=== PATIENT | female | born 1940 | race Caucasian/White ===

== ENCOUNTER 2024-08-31 15:36 | Emergency (ER) | payer OTHER, SELFPAY ==
--- NOTE | ~2024-08-31 | CT_ITS ---
EXAMINATION: CT abdomen pelvis w con DATE: 08/31/2024 22:37 INDICATION: LLQ ab pain, diarrhea TECHNIQUE: Computed tomography (CT) of the abdomen and pelvis was performed with 100 mL Omnipaque-350 intravenous contrast. Automated exposure control and iterative reconstruction technique were employe d. The dose-length product was 183.07 mGy-cm. COMPARISON: None. FINDINGS: Lower thorax: Unremarkable Liver: Normal. Biliary/Gallbladder: Gallbladder is absent. Moderate intra and extrahepatic bile duct dilation. The c ommon bile duct measures 14 mm at the pancreatic head. Pancreas: Moderate atrophy. Mild pancreatic duct dilation. No mass. Spleen: Subcentimeter hypodensity, likely cyst or hemangioma.. Adrenals:No mass. Kidneys: No suspicious mass, obstructing stone, or hydronephrosis. GI tract: Moderate hiatal hernia. Prior gastric surgery. Moderate distal esophageal and gastric wall edema. Mild diffuse large bowel dilation and redundancy, without wall thickening or focal transition point. The fecal content is mostly fat density. No small bowel dilation. The appendix is not confiden tly visualized. A few scattered diverticuli are noted without definite evidence of diverticulitis Mesentery/Peritoneum: No ascites, mass, or free air. Retroperitoneum: No mass. Atherosclerotic abdominal aortic and/or arterial calcifications. Pelvis: Mostly empty urinary bladder. Absent uterus. Simple appearing 2.8 cm cystic structure in the right adnexa, may represent an ovarian cyst or fluid within a loop of small bowel. Soft Tissues: Mild diffuse body wall edema. Moderate sized right inguinal hernia containing fat and l oops of unobstructed small bowel. Bones: No acute osseous finding. Severe scoliosis. IMPRESSION: Moderate esophagitis/gastritis. Biliary and pancreatic duct dilation without visualized stone or obstructing mass. Correlate with maya iary and pancreatic labs. If abnormal, consider MRCP. Mostly fat density fecal content within the colon, correlate with dietary/mediastinal intake and any history of malabsorption. Right inguinal hernia containing fat and loops of small bowel. No inflammatory changes or evidence of bowel obstruction. Possible 2.8 cm right adnexal ovarian cyst. Reviewed, dictated and finalized at location [facility] CLERK IMPRESSION: Moderate esophagitis/gastritis. Biliary and pancreatic duct dilation without visualized stone or obstructing ma ss. Correlate with biliary and pancreatic labs. If abnormal, consider MRCP. Mostly fat density fecal content within the colon, correlate with dietary/media stinal intake and any history of malabsorption. Right inguinal hernia containing fat and loops of small bowel. No inflammatory changes or evidence of bowel obstruction. Possible 2.8 cm right adnexal ovarian cyst.
[2024-08-31 16:02] VITALS: BP 170/87; PULSE 55; RESP 18; TEMP 36.6; O2SAT 100
--- NOTE | 2024-08-31 17:56 | ED_ITS ---
HPI - Nausea/Vomiting/Diarrhea General Chief complaint: Nausea/Vomiting/Diarrhea Stated complaint: Diarrhea x 3-4 days-sent by Focused HPI: This is a 84-year-old female who presents to the ED for chief complaint of 4 days of diarrhea. Reports diffuse watery secretory diarrhea multiple times per day. Denies GI bleeding symptoms. Denies abdominal pain, nausea, vomiting, fevers, chills, recent antibiotic use or hospitalization. Denies any new medications. She has tried to replace fluids, however it feels like it goes straight through her. GENERAL: Well-appearing, well-nourished, and in no acute distress. HEAD: Normocephalic, atraumatic. CHEST: Clear to auscultation. No respiratory distress. HEART: Regular rate and rhythm. ABD: Soft, nontender. no rigidity. NEURO: Alert and oriented x3. Patient screened in triage and initial orders placed. Additional care and disposition to be based upon diagnostic testing and treatment. Source: patient Mode of arrival: ambulatory Limitations: no limitations Related Data Allergies Allergy/AdvReac Type Severity Reaction Status Date / Time aspirin Allergy Mild Abdominal Verified 08/31/24 16:05 Pain Course Vital Signs Vital signs: Vital Signs Temperature 97.9 F 08/31/24 16:02 Pulse Rate 55 L 08/31/24 16:02 Respiratory Rate 18 08/31/24 16:02 Blood Pressure 170/87 H 08/31/24 16:02 Pulse Oximetry 100 08/31/24 16:02 Oxygen Delivery Room Air 08/31/24 16:02 Temperature 97.9 F 08/31/24 16:02 Pulse Rate 55 L 08/31/24 16:02 Respiratory Rate 18 08/31/24 16:02 Blood Pressure 170/87 H 08/31/24 16:02 Pulse Oximetry 100 08/31/24 16:02 Oxygen Delivery Room Air 08/31/24 16:02 Discharge Plan Discharge Patient Language: Maltese Follow-up/Referrals: PHYSICIAN NOT ON STAFF,NONSTAFF [Primary Care Provider] -
[2024-08-31 18:11] VITALS: BP 188/91; PULSE 61; RESP 18; TEMP 36.8; O2SAT 99
[2024-08-31 18:36] LABS: Basophils Percent Auto 0.4 % (0.2-1.2); Eosinophils Absolute Auto 0.1 K/mm3 (0-0.3); Eosinophils Percent Auto 1.7 % (0-4.4); Hematocrit 39.5 % (37.0-47.0); Immature Granulocyte Absolute 0.01 K/mm3 (0.00-0.031); Immature Granulocyte Percent A 0.1 % (0-0.5); Lymphocytes Absolute Auto 1.46 K/mm3 (0.9-3.2); Lymphocytes Percent Auto 20.3 % (18.3-44.2); Mean Corpuscular HGB Conc 32.9 g/dl (32-36); Mean Corpuscular Hemoglobin 31.2 pg (26-34); Mean Corpuscular Volume 94.7 fl (80-100); Monocytes Absolute Auto 0.5 K/mm3 (0.1-0.6); Monocytes Percent Auto 7.2 % (2.6-8.5); Neutrophils Absolute Auto 5.1 K/mm3 (1.3-6.7); Neutrophils Percent Auto 70.3 % (45.5-73.1); Platelet Count Result 160 k/mm3 (150-375); Red Blood Count 4.17 M/mm3 (4.2-5.4); White Blood Count 7.2 K/mm3 (4.5-10.0)
[2024-08-31 18:49] LABS: Lipase 25 U/L (23-300)
[2024-08-31 22:06] LABS: Alanine Aminotransferase 20 U/L (6-35); Albumin Level 3.6 g/dL (3.5-5.1); Alkaline Phosphatase 68 U/L (38-126); Anion Gap 5 mmol/L (4-12); Aspartate Amino Transferase 28 U/L (14-36); Bilirubin,Total 0.7 mg/dL (0.2-1.3); Blood Urea Nitrogen 28 mg/dL (7-17); Calcium 9.4 mg/dL (8.4-10.2); Carbon Dioxide 31 mmol/L (22-30); Chloride 106 mmol/L (98-107); Estimated CRCL calculation 36 ml/min; Estimated Glomerular Filt Rate > 60; Glucose 104 mg/dL (65-110); Magnesium 2.4 mg/dL (1.6-2.3); Potassium 3.3 mmol/L (3.4-5.0); Sodium 142 mmol/L (137-145)
--- NOTE | 2024-08-31 22:15 | ED_ITS ---
HPI - General Adult General Chief complaint: Nausea/Vomiting/Diarrhea Stated complaint: Diarrhea x 3-4 days-sent by Time Seen by Provider: 08/31/24 21:49 General Chief complaint: Nausea/Vomiting/Diarrhea Stated complaint: Diarrhea x 3-4 days-sent by Focused HPI: This is a 84-year-old female who presents to the ED for chief complaint of 4 days of diarrhea. Reports diffuse watery secretory diarrhea multiple times per day. Denies GI bleeding symptoms. Denies abdominal pain, nausea, vomiting, fevers, chills, recent antibiotic use or hospitalization. Denies any new medications. She has tried to replace fluids, however it feels like it goes straight through her. GENERAL: Well-appearing, well-nourished, and in no acute distress. HEAD: Normocephalic, atraumatic. CHEST: Clear to auscultation. No respiratory distress. HEART: Regular rate and rhythm. ABD: Soft, nontender. no rigidity. NEURO: Alert and oriented x3. Patient screened in triage and initial orders placed. Additional care and disposition to be based upon diagnostic testing and treatment. Source: patient Mode of arrival: ambulatory Limitations: no limitations Source: patient Mode of arrival: ambulatory Limitations: no limitations History of Present Illness HPI narrative: I agree with the above HPI. Patient states he did have constipation for a few days and did take multiple doses of MiraLax but now she is just having diarrhea. Patient initially denied any abdominal pain but did have some left lower quadrant abdominal tenderness to palpation. Patient denies any urinary symptoms. Patient is present here with her daughter. Related Data Allergies Allergy/AdvReac Type Severity Reaction Status Date / Time aspirin Allergy Mild Abdominal Verified 08/31/24 16:05 Pain Review of Systems 2 Review of Systems: All systems reviewed & are unremarkable except as noted in HPI and below Exam 2 Narrative: APPEARANCE: Well appearing, no pain, no distress, well-nourished. HEAD: normocephalic, atraumatic. EYES: PERRLA/EOMI, conjunctivae clear. NOSE: Normal no drainage EARS:TMS clear with good light reflex. THROAT: Pharynx clear, no exudate. NECK: Supple. No adenopathy, no masses. RESPIRATORY: Airway patent, respirations nonlabored. Clear to auscultation bilaterally, no rales, rhonchi, wheezing. CARDIOVASCULAR: Regular rate and rhythm without murmurs rubs or gallops. ABDOMINAL: Soft, nontender, nondistended, normal bowel sounds MUSCULOSKELETAL: Moves all extremities. Strength/ROM intact, No edema, No calf tenderness. NEURO: Alert. Cranial nerves II through XII intact. Good gait. Good coordination SKIN: Warm, dry. Normal Color Course Vital Signs Vital signs: Vital Signs Temperature 97.9 F 08/31/24 16:02 Pulse Rate 55 L 08/31/24 16:02 Respiratory Rate 18 08/31/24 16:02 Blood Pressure 170/87 H 08/31/24 16:02 Pulse Oximetry 100 08/31/24 16:02 Oxygen Delivery Room Air 08/31/24 16:02 Temperature 98.3 F 08/31/24 18:11 Pulse Rate 55 L 08/31/24 23:05 Respiratory Rate 17 08/31/24 23:05 Blood Pressure 195/93 H 08/31/24 23:05 Pulse Oximetry 100 08/31/24 23:05 Oxygen Delivery Room Air 08/31/24 16:02 Medical Decision Making [facility] Narrative Medical decision making narrative: 84-year-old female presented emergency department for evaluation for diarrhea. Patient is afebrile with no leukocytosis and hemoglobin of 13.0. Patient has no significant abnormalities on her CMP, patient's creatinine is 0.74 and patient's BUN is 28. Lipase was negative. Patient did have some left lower quadrant tenderness to palpation. CT scan was ordered to evaluate for diverticulitis versus obstruction. Patient did have an enlarged biliary duct but patient has history of cholecystectomy. Patient denies any upper abdominal pain and patient has normal AST ALT alk-phos and lipase. UA was negative for infection. Patient's blood pressure did improve. Patient family updated the results of the workup they were comfortable the plan for discharge and close follow-up. Patient was advised to follow a clear liquid diet for the next 1-3 days. Differential Diagnosis Differential Diagnosis: Colitis, diverticulitis, cystitis, viral etiology, constipation, diarrhea Vital Signs Vital Signs: Vital Signs Temperature 97.9 F 08/31/24 16:02 Pulse Rate 55 L 08/31/24 16:02 Respiratory Rate 18 08/31/24 16:02 Blood Pressure 170/87 H 08/31/24 16:02 Pulse Oximetry 100 08/31/24 16:02 Oxygen Delivery Room Air 08/31/24 16:02 Temperature 98.3 F 08/31/24 18:11 Pulse Rate 55 L 08/31/24 23:05 Respiratory Rate 17 08/31/24 23:05 Blood Pressure 195/93 H 08/31/24 23:05 Pulse Oximetry 100 08/31/24 23:05 Oxygen Delivery Room Air 08/31/24 16:02 Lab Data Lab results reviewed: Yes I reviewed the patient's lab results. 08/31/24 18:02 08/31/24 18:01 Labs: Lab Results 08/31/24 08/31/24 08/31/24 Range/Units 18:01 18:02 22:12 WBC 7.2 (4.5-10.0) K/mm3 RBC 4.17 L (4.2-5.4) M/mm3 Hgb 13.0 (12.0-15.0) g/dL Hct 39.5 (37.0-47.0) % MCV 94.7 (80-100) fl MCH 31.2 (26-34) pg MCHC 32.9 (32-36) g/dl RDW 13.0 (11.5-14.5) % Plt Count 160 (150-375) k/mm3 MPV 13.0 H (7.4-10.4) fl Immature Gran % (Auto) 0.1 (0-0.5) % Neut % (Auto) 70.3 (45.5-73.1) % Lymph % (Auto) 20.3 (18.3-44.2) % [place] % (Auto) 7.2 (2.6-8.5) % Eos % (Auto) 1.7 (0-4.4) % Baso % (Auto) 0.4 (0.2-1.2) % Lymph # (Auto) 1.46 (0.9-3.2) K/mm3 [place] # (Auto) 0.5 (0.1-0.6) K/mm3 Eos # (Auto) 0.1 (0-0.3) K/mm3 Baso # (Auto) 0.0 (0.0-0.1) K/mm3 Abs Immat Gran (auto) 0.01 (0.00-0.031) K/mm3 Absolute Neuts (auto) 5.1 (1.3-6.7) K/mm3 Absolute Nucleated RBC 0.000 (0.0-0.012) K/mm3 Nucleated RBC % 0.0 (0.0-0.2) % Sodium 142 (137-145) mmol/L Potassium 3.3 L (3.4-5.0) mmol/L Chloride 106 (98-107) mmol/L Carbon Dioxide 31 H (22-30) mmol/L Anion Gap 5 (4-12) mmol/L BUN 28 H (7-17) mg/dL Creatinine 0.74 (0.7-1.0) mg/dL Estim Creat Clear Calc 36 ml/min Estimated GFR > 60 (59 - ) Glucose 104 (65-110) mg/dL Calcium 9.4 (8.4-10.2) mg/dL Magnesium 2.4 H (1.6-2.3) mg/dL Total Bilirubin 0.7 (0.2-1.3) mg/dL AST 28 (14-36) U/L ALT 20 (6-35) U/L Alkaline Phosphatase 68 (38-126) U/L Total Protein 6.0 L (6.3-8.2) g/dL Albumin 3.6 (3.5-5.1) g/dL Lipase 25 (23-300) U/L Urine Color Dark yellow (Yellow) Urine Appearance Cloudy H (Clear) Urine pH 5.5 (5.0-9.0) Ur Specific [place] 1.026 (1.001-1.035) Urine Protein Trace (Negative) mg/dL Urine Glucose (UA) Negative (Negative) mg/dL Urine Ketones Trace H (Negative) mg/dL Ur Blood (Man) Negative (Negative) Urine Nitrate Negative (Negative) Urine Bilirubin 1+ H (Negative) Urine Urobilinogen 1.0 (<2.0) mg/dL Add Ur Microanalysis Reviewed Leukocyte Esterase Rfl Negative (Negative) OSMIN/UL Urine RBC 0-2 (0-2) /hpf Urine WBC 0-5 (0-3) /hpf Ur Squamous Epith Cells None seen (Few) /hpf Urine Bacteria None seen /hpf Urine Casts 0-2 Imaging Data Radiologist's impression: Impressions Abdomen/Pelvis CT 08/31/24 22:39 IMPRESSION: Moderate esophagitis/gastritis. Biliary and pancreatic duct dilation without visualized stone or obstructing mass. Correlate with biliary and pancreatic labs. If abnormal, consider MRCP. Mostly fat density fecal content within the colon, correlate with dietary/mediastinal intake and any history of malabsorption. Right inguinal hernia containing fat and loops of small bowel. No inflammatory changes or evidence of bowel obstruction. Possible 2.8 cm right adnexal ovarian cyst. Discharge Plan Discharge Clinical Impression: Diarrhea Patient Disposition: Home, Self-Care Condition: Stable Instructions: Antibiotic Form, Clear Liquid Diet (ED), Acute Diarrhea (ED) Additional Instructions: Follow a clear liquid diet for the next 1-3 days. Advance to a bland diet as tolerated. Have close follow-up with your primary care physician. If you have any worsening symptoms then please call or return to the emergency department. Patient Language: Citizen Of [place] Follow-up/Referrals: PHYSICIAN NOT ON STAFF,NONSTAFF [Primary Care Provider] -
[2024-08-31] MEDS: SODIUM CHLORIDE 0.9% IV 1,000 ML 999 ML IV CONT (22:23)
[2024-08-31] MEDS: hydrALAZINE HCL 20 MG/ML VIAL 10 MG IV PUSH (23:04)
[2024-08-31 23:05] VITALS: BP 195/93; PULSE 55; RESP 17; O2SAT 100
[2024-08-31 23:14] LABS: Add Urine Microscopic? YES; Appearance Urine Cloudy (Clear); Bacteria Urine None Seen /hpf; Bilirubin Urine 1+ (Negative); Blood Urine Negative (Negative); Color Urine Dark Yellow (Yellow); Glucose Urine UA Negative (Negative); Ketones Urine Trace mg/dL (Negative); Leukocyte Esterase Ur Negative LEU/UL (Negative); Need Manual Microscopic Reviewed; Nitrate Urine Negative (Negative); Non Pathogenic Casts 0-2; Protein Urine Trace mg/dL (Negative); RBC Urine 0-2 /hpf (0-2); Specific Grav Ur 1.026 (1.001-1.035); Squamous Epithelial Cell Urine None Seen /hpf (Few); WBC Urine 0-5 /hpf (0-3); pH Urine 5.5 (5.0-9.0)
[2024-08-31 23:30] VITALS: BP 168/95; PULSE 63; RESP 17; O2SAT 99
[2024-08-31 23:37] VITALS: BP 168/95; PULSE 64; RESP 17; O2SAT 100
== END 2024-08-31 23:48 | disposition home or self-care (01) ==
PROVIDERS: Physician Assistant; Emergency Provider Emergency Medicine
DX: R19.7 Diarrhea, unspecified (principal); Z90.49 Acquired absence of other specified parts of digestive tract; K20.90 Esophagitis, unspecified without bleeding; K29.70 Gastritis, unspecified, without bleeding; K40.90 Unilateral inguinal hernia, without obstruction or gangrene, not specified as recurrent; R93.89 Abnormal findings on diagnostic imaging of other specified body structures
CPT/HCPCS: 36415; 74177; 80053; 81001; 83690; 83735; 85025; 96361; 96374; 99284; J0360; J7030; Q9967

== ENCOUNTER 2025-06-08 10:30 | Emergency (ER) | payer MEDICARE, SELFPAY ==
--- OUTSIDE RECORDS SUMMARY | 2025-06-08 10:33 | XMS_ITS | Clinical Summary ---
Author Organization [facility] Address [address] [place] [address] Care Team Providers Care Restaurant Hospitality Manager Name Role Phone Lito Kwan MD Primary Care Provider Unavail Vasu Adorno Che, MD Unavailable [phone] Source Comments [facility],non-owned Affiliates and Associated Physician Practices is amultiple site organization consisting of ambulatory clinics and hospital sitesin [place], [place], [place] and [place]. This disclosure is being madepursuant to the Care Everywhere program and may not contain all information available regarding this patient. Last updated 18.[facility] Allergies Active Allergy Reactions Criticality Noted Date Comments Aspirin Other Low 11/26/2015 Causes acid reflux Medications * Be aware that medications may not be up to date on this document. Alwaysverify current medications with the patient. Calcium Carb-Cholecalc iferol (CALCIUM + D3) 600-200 MG-UNIT Take 1 Tab by mouth 2 times daily Active losartan (COZAAR) 50 MG tablet Take 50 mg by mouth 2 times daily 6 Active MULTIPLE VITAMIN PO Active NIFEdipine CR 24hr (ADALAT CC) 30 MG tablet Take 30 mg by mouth 2 times daily 4 Active omeprazole (PRILOSEC) 40 MG capsule Take 40 mg by mouth daily before breakfast 2 Active oxybutynin (DITROPAN) 5 MG tablet Take 5 mg by mouth once daily 1 Active polyethylene glycol 3350 (MIRALAX) powder Take 17 g by mouth once daily Active oxyCODONE-acet aminophen (PERCOCET) 5-325 MG tablet Take 1 Tab by mouth every 4 hours as needed for Pain 65 Tab 0 6 Active Additional Information Patient not taking.Reported on 01/30/2016 lidocaine (XYLOCAINE) 5 % ointment Apply topical to rectal area 2 - 3 times a day prn pain 30 g 1 6 Active Additional Information Patient not taking.Reported on 04/02/2016 vitamin D3 (CHOLECALCIFER OL) 1000 UNITS tablet Take 1,000 Units by mouth 2 times daily Active Simethicone (GAS-X PO) Take by mouth as needed Active acetaminophen (TYLENOL) 500 MG tablet Take 500 mg by mouth as needed for Fever or Pain Maximum allowable Acetaminophen amount = 4 Grams (4000 mg) / 24 hours. Active Active Problems Problem Noted Date Diagnosed Date Hemorrhoids 01/16/2016 Family History Medical History Relation Name Comments Cancer Brother 2 throat Diabetes Maternal Grandfather Diabetes Maternal Grandmother Hypertension Mother Cancer Paternal Grandfather abdomin al Cancer Paternal Grandmother abdomin al Relation Name Status Comments Brother 1 Alive x2 Brother 2 Father WWII Maternal Grandfather Maternal Grandmother Mother Alive Paternal Grandfather Paternal Grandmother Sister Alive x2 Social History Tobacco Use Types Packs/Day Years Used Date Smoking Tobacco: Former Cigarettes Q uit: 08/22/1979 Smokeless Tobacco: Never Alcohol Use Standard Drinks/Week Comments No 0 (1 standard drink = 0.6 oz pur e alcohol) Comments No Sex and Gender Information Value Date Recorded Sex Assigned at Not on file Legal Sex Female 3:15 PM PMP CERTIFIED PROJECT MANAGER Gender Identity Not on file Sexual Orientation Not on file Last Filed Vital Signs Vital Sign Reading Time Taken Comments Blood Pressure 122/80 08/18/2016 2:10 PM PMP CERTIFIED PROJECT MANAGER Pulse 67 01/15/2016 11:12 AM CDT Temperature 36.6 C (97.8 F) 01/15/2016 11:12 AM CDT Respiratory Rate 20 01/15/2016 11:12 AM CDT Oxygen Saturation 96% 01/15/2016 11:12 AM CDT Inhaled Oxygen Concentration - - Weight 70.3 kg (155 lb) 08/18/2016 2:10 PM PMP CERTIFIED PROJECT MANAGER Height 154.9 cm (5' 1) 08/18/2016 2:10 PM PMP CERTIFIED PROJECT MANAGER Body Mass Index 29.29 08/18/2016 2:10 PM PMP CERTIFIED PROJECT MANAGER Plan of Treatment Health Maintenance Due Date Last Done Comments BONE DENSITY TESTING 1942 DTAP/TDAP/TD VACCINES (1 - Tdap) 1961 PNEUMOCOCCAL VACCINE 50+ (1 of 1 - PCV) 01/25/1992 ZOSTER VACCINE (1 of 2) 01/25/1992 Respiratory Syncytial Virus (RSV) Vaccine Pt: or over 60 yrs (1 - 1-dose 75+ series) 2017 DEPRESSION SCREENING 08/22/2024 COVID-19 VACCINE (1 - 2023-2 5 season) 2025 INFLUENZA VACCINE (#1) 2025 HEPATITIS B VACCINE Aged Out No longe r eligible based on patient's age to complete this topic HIB VACCINE Aged Out No longer eligi ble based on patient's age to complete this topic HPV VACCINE Aged Out No longer eligi ble based on patient's age to complete this topic MENINGOCOCCAL (Group B) VACC INE SHARED DECISION-MAKING Aged Out No longer eligibl e based on patient's age to complete this topic MENINGOCOCCAL GROUPS A/C/Y/W VACCINE Aged Out No longer eligible b ased on patient's age to complete this topic Insurance Care Teams Restaurant Hospitality Manager Relationship Specialty Start Date End Date Lito Kwan MD PCP - General Internal Medicine 10/29/15 Vasu Alvarado Che, MD [address] [address] Referring Physician Obstetrics and Gynecology 10/29/15
--- OUTSIDE RECORDS SUMMARY | 2025-06-08 10:33 | XMS_ITS | Encounter Summary ---
Author Organization [facility] Address [address] [place] [address] Care Team Providers Care Pharmaceutical Development Technician Name Role Phone Lito Kwan MD Primary Care Provider Unavail able Vasu Alvarado Che, MD Unavailable [phone] Encounter Details Date Type Department Care Team (Late st Contact Info) Description 11/26/2015 [facility] Outpatient Visit [facility] [address] [place] [address] Gordo Nielsen MD [address] [place] [address] Social History Tobacco Use Types Packs/Day Years Used Date Smoking Tobacco: Former Cigarettes Q uit: 08/22/1979 Smokeless Tobacco: Never Alcohol Use Standard Drinks/Week Comments No 0 (1 standard drink = 0.6 oz pur e alcohol) Comments No Sex and Gender Information Value Date Recorded Sex Assigned at Not on file Legal Sex Female 3:15 PM SOCIAL SERVICES Gender Identity Not on file Sexual Orientation Not on file documented as of this encounter Plan of Treatment Not on file documented as of this encounter Visit Diagnoses Not on filedocumented in this encounter Care Teams Pharmaceutical Development Technician Relationship Specialty Start Date End Date Lito Kwan MD PCP - General Internal Medicine 10/29/15 Vasu Alvarado Che, MD [address] [place] [address] Referring Physician Obstetrics and Gynecology 10/29/15 documented as of this encounter
--- NOTE | 2025-06-08 10:35 | ED.GENADULT ---
HPI - General Adult General Chief complaint: Extremity Injury, Lower Stated complaint: Left leg /fall Time Seen by Provider: 06/08/25 10:50 Source: patient, RN notes reviewed and old records reviewed Mode of arrival: ambulatory Limitations: no limitations History of Present Illness HPI narrative: 85-year-old female presents to the [facility] with son. States that on Tuesday patient tripped and fell and a table landing on her left leg. Denies hitting head. No loss of consciousness. Patient with significant bruising and has a very large hematoma to mid lateral left leg. Patient denies any pain. Patient on Plavix. Patient is requesting that we drain the hematoma. Onset (ago): day(s) (5) Related Data Home Medications ?Medication ?Instructions ?Recorded ?Confirmed ?Last Taken ?Type atorvastatin 20 mg tablet mg 06/08/25 Unknown History buspirone 5 mg tablet mg 06/08/25 Unknown History clopidogrel 75 mg tablet mg 06/08/25 Unknown History lisinopril 10 mg tablet mg 06/08/25 Unknown History lisinopril 40 mg tablet mg 06/08/25 Unknown History omeprazole 40 mg capsule,delayed mg 06/08/25 Unknown History release oxybutynin chloride 5 mg tablet mg 06/08/25 Unknown History sertraline 50 mg tablet mg 06/08/25 Unknown History Allergies Allergy/AdvReac Type Severity Reaction Status Date / Time aspirin Allergy Mild Abdominal Verified 06/08/25 10:50 Pain Review of Systems Review of Systems: All systems reviewed & are unremarkable except as noted in HPI and below Constitutional: Constitutional: Reports no additional constitutional complaints Cardiovascular: Cardiovascular: Reports no additional cardiovascular complaints, Denies chest pain and Denies dyspnea Respiratory: Respiratory: Reports no additional respiratory complaints, Denies chest congestion, Denies cough and Denies dyspnea Musculoskeletal: Musculoskeletal: Reports as per HPI Integumentary/Breasts: Skin/Breast: Reports as per HPI PMFSH Comments At the time of my signature, I reviewed and agree with the nursing past medical, surgical, social, and family history. There is no relevant family history pertinent to the patient complaint. Exam Const: General: cooperative, no acute distress, well developed, alert, ill appearing chronically, tired appearing and well nourished Nutritional Appearance: well nourished Orientation/consciousness: patient oriented x3 Limitations: no limitations HENMT: Head: normal to inspection Eyes: General: appearance normal, both eyes and all related structures Alignment and Position: alignment normal Neck: Neck: normal visual inspection, full ROM, no lymphadenopathy and no meningeal signs Chest: Chest palpation & inspection: normal inspection of the chest Resp: Effort & Inspection: normal respiratory effort and able to speak in complete sentences Cardio: Rate: regular rate Skin: General skin exam: normal color and no rashes or lesions noted Other: Patient was significant ecchymoses to the left lower leg. Denies any pain. Has a 4 x 4 cm large hematoma left lateral mid calf. Neuro: General: patient oriented x3, gait normal, moves all extremities and no meningeal signs Cognition (Neuro): normal cognition Speech: normal speech Gait exam (Neuro): Normal gait present Extrem: General: normal to inspection, full ROM, capillary refill normal and normal gait Psych: Appearance: grossly normal and well kempt Mental Status: mental status grossly normal Speech and movement: Normal speech and movement present and Clear speech present Affect: normal affect Attitude: cooperative Course Course Level of Care: Express Care Visit Vital Signs Vital signs: Vital Signs Temperature 98.8 F 06/08/25 10:38 Pulse Rate 60 06/08/25 10:38 Respiratory Rate 20 06/08/25 10:38 Blood Pressure 150/74 H 06/08/25 10:38 Pulse Oximetry 98 06/08/25 10:38 Oxygen Delivery Room Air 06/08/25 10:38 Temperature 98.8 F 06/08/25 10:38 Pulse Rate 60 06/08/25 10:38 Respiratory Rate 20 06/08/25 10:38 Blood Pressure 150/74 H 06/08/25 10:38 Pulse Oximetry 98 06/08/25 10:38 Oxygen Delivery Room Air 06/08/25 10:38 Reviewed Medical Decision Making MDM Narrative Medical decision making narrative: Patient sitting in exam room. Patient is nontoxic, vitals are stable except blood pressure is mildly elevated. History of hypertension. Patient presents requesting to have a very large hematoma drained. No recent labs noted on this patient, currently on Plavix. Offered x-ray, to make sure nothing is broken, patient is declining stating that she is not having any pain is walking with a normal gait. Discussed risks especially being on Plavix draining mat especially not knowing platelet count. Discussed possible transfer to the ER. Discussed that if it does pop or start draining she needs to hold constant pressure to the area. Discussed these risks with her son as well. Patient is not wanting to go to the emergency room. Discharge instructions reviewed with patient, as well as provided in writing per nursing staff. The instructions also include specific and strict return/GO TO THE ER as well as f/u information. All questions have been answered, and the patient deny any further questions with discharge and discharge plan. Some parts of this dictation were generated by voice recognition software and may contain typographical and/or grammatical inaccuracies. Differential Diagnosis Differential Diagnosis: Hematoma Medical Records Medical records reviewed: Yes I reviewed the external patient's medical records. Vital Signs Vital Signs: Vital Signs Temperature 98.8 F 06/08/25 10:38 Pulse Rate 60 06/08/25 10:38 Respiratory Rate 20 06/08/25 10:38 Blood Pressure 150/74 H 06/08/25 10:38 Pulse Oximetry 98 06/08/25 10:38 Oxygen Delivery Room Air 06/08/25 10:38 Temperature 98.8 F 06/08/25 10:38 Pulse Rate 60 06/08/25 10:38 Respiratory Rate 20 06/08/25 10:38 Blood Pressure 150/74 H 06/08/25 10:38 Pulse Oximetry 98 06/08/25 10:38 Oxygen Delivery Room Air 06/08/25 10:38 Reviewed Lab Data Lab results reviewed: Yes I reviewed the patient's lab results. Labs: Reviewed Critical Care Time Critical Care Time Critical Care Time: No Discharge Plan Discharge Clinical Impression: Hematoma of left lower leg Patient Disposition: Home Condition: Stable Instructions: Hematoma (ED) Additional Instructions: Rest, ice and elevate every 2-3 hours for 15-20 minutes while awake. If that hematoma happens to pop please apply direct pressure for 30 minutes without checking. Follow-up with primary care provider For new or worsening symptoms go directly to the emergency room Patient Language: Jordanian Prescriptions: No Action buspirone 5 mg tablet atorvastatin 20 mg tablet clopidogrel 75 mg tablet omeprazole 40 mg capsule,delayed release(DR/EC) lisinopril 10 mg tablet oxybutynin chloride 5 mg tablet lisinopril 40 mg tablet sertraline 50 mg tablet Follow-up/Referrals: UNKNOWN,DOCTOR [Non-Staff] Time of Disposition: 10:58
[2025-06-08 10:38] VITALS: BP 150/74; PULSE 60; RESP 20; TEMP 37.1; O2SAT 98
--- OUTSIDE RECORDS SUMMARY | 2025-06-08 10:40 | XMS_ITS | Clinical Summary ---
Author Organization [facility] Address [address] [place] [id number] Care Team Providers Care Industrial Production Manager Name Role Phone Babak Harp MD Unavailable [phone] Maisha Hilton MD Primary Care Provide r Allergies Active Allergy Reactions Criticality Noted Date Comments Aspirin Other (See comments),Stomach upset Low Reaction: Stomach Pain, , Reaction: Gastrointestinal Intolerance, , Medications polyethylene glycol (MIRALAX) 17 gram/dose powder take (17G) by oral route every day mixed with 8 oz. water, juice, soda, coffee or tea 30 5 03/22/20 11 Active cholecalciferol (VITAMIN D-3) 1,000 unit capsule Take 1 capsule (1,000 Units total) by mouth 2 (two) times a day Active simethicone (MYLICON,GAS-X) 125 mg capsule Take 180 mg by mouth every 6 (six) hours as needed for flatulence Active carboxymethylcellul ose sodium (THERATEARS) 0.25 % ophthalmic solution Administer into affected eye(s) Active acetaminophen (TYLENOL) 325 mg tablet Take 2 tablets (650 mg total) by mouth every 6 (six) hours as needed for pain Active multivitamin capsule Take 1 capsule by mouth daily Active aspirin 81 mg enteric coated tabletIndications:C erebral Thromboembolism Prevention Take 1 tablet (81 mg total) by mouth daily 30 tablet 11 12/05/19 25 026 Active atorvastatin (LIPITOR) 20 mg tablet TAKE 1 TABLET BY MOUTH ONCE DAILY 100 tablet 1 01/08/20 25 Active bacitracin 500 unit/gram ointment Apply topically 2 (two) times a day 120 g 01/23/20 25 Active busPIRone (BUSPAR) 5 mg tablet Take 1 tablet (5 mg total) by mouth 3 (three) times a day 270 tablet 1 02/27/20 25 026 Active lisinopriL (PRINIVIL,ZESTRIL) 40 mg tablet TAKE 1 TABLET BY MOUTH DAILY 90 tablet 1 03/04/20 25 Active sertraline (ZOLOFT) 50 mg tablet TAKE 1 TABLET BY MOUTH DAILY 90 tablet 1 03/06/20 25 Active clopidogreL (PLAVIX) 75 mg tablet TAKE 1 TABLET BY MOUTH DAILY 90 tablet 1 03/15/20 25 Active oxyBUTYnin (DITROPAN) 5 mg tablet TAKE 1 TABLET BY MOUTH TWICE DAILY 180 tablet 3 04/26/20 25 Active omeprazole (PriLOSEC) 40 mg capsule TAKE 1 CAPSULE (40 MG TOTAL) BY MOUTH DAILY 90 capsule 04/29/20 25 Active Active Problems Problem Noted Date Diagnosed Date Anxiety 12/31/2024 Assessment & Plan (05/09/2025 1:44 PM CDT): Stable / clinically quiescent. Will continue to monitor. Continue buspar Assessment & Plan (12/31/2024 9:54 AM CDT): Concern about memory 12/31/2024 Assessment & Plan (12/31/2024 9:54 AM CDT): Falls frequently 12/09/2024 Dysphagia 11/28/2024 TIA (transient ischemic attack) 11/26/2024 Assessment & Plan (12/31/2024 9:54 AM CDT): Altered mental status 11/26/2024 PAC (premature atrial contraction) 03/12/2024 Assessment & Plan (03/12/2024 1:36 PM CDT): Less than 1% Pac burden. No therapy indicated. Monitor. RBBB 03/12/2024 Assessment & Plan (03/12/2024 1:35 PM CDT): Stable. No signs of advanced heart block including the 30 day event recorder. Observe BMI 22.0-22.9, adult 01/25/2024 Assessment & Plan (05/09/2025 1:44 PM CDT): Assessment & Plan (01/31/2025 3:12 PM CDT): Assessment & Plan (12/31/2024 9:54 AM CDT): Assessment & Plan (01/25/2024 2:06 PM CDT): Wt Readings from Last 3 Encounters: 01/24/24 45.4 kg (100 lb) 10/21/23 46.3 kg (102 lb) 08/03/23 47.3 kg (104 lb 3.2 oz) Body mass index is 19.53 kg/m . -Stable, at goal of <30 bmi -Discussed recommendations for exercise at least 30 minutes moderate to vigorous exercise as tolerated most days of the week. (minimum 150 minutes weekly) -Discussed importance of well-balanced diet. PVC (premature ventricular contraction) 01/25/20 Assessment & Plan (03/12/2024 1:36 PM CDT): Less than 1% PVC burden. No therapy indicated monitor. Assessment & Plan (03/07/2024 5:12 PM CDT): Holter monitor results reviewed and discussed She will follow-up with Cardiology on the Assessment & Plan (01/25/2024 2:09 PM CDT): EKG performed in office today; results showed sinus bradycardia with PVCs and right bundle branch block Abnormal finding on EKG 01/25/2024 Assessment & Plan (01/25/2024 2:17 PM CDT): -new complaint, acute -patient reports having recent home wellness visit with the nurse practitioner from her insurance company that had noted the patient's heart sounded a regular -EKG performed by patient's grandchild who works for EMS which noted abnormalities -patient denies any chest pain or palpitations, but does note she seems to get winded easily with activity -EKG in office shows sinus bradycardia with PVCs and right bundle branch block -event monitor for 7 days ordered -referral to cardiology placed Grief 06/28/2023 Assessment & Plan (08/03/2023 5:41 PM LABORER CHEESEMAKING): Acute problem-improving Continue sertraline 50 mg daily Follow up with counseling as recommended Follow up as scheduled-sooner prn Patient reiterated no suicidal thoughts at this time; take medication as directed; contact 911 and go to the ER if becomes suicidal; discussed side effects of medication with patient; encouraged healthy diet and exericise; encouraged patient to see a counselor Assessment & Plan (06/28/2023 2:32 PM LABORER CHEESEMAKING): 2/2 loss of spouse Increase sertraline to 50mg daily Finish the xanax. Will not do any future refills Referral to counseling given F/u in 1 month or sooner if worsening symptoms Groin lump 03/01/2023 Assessment & Plan (03/01/2023 9:34 AM CDT): Ddx enlarged reactive lymph node vs small hernia Will get us of the groin F/u in a month pending results Bilateral impacted cerumen 12/22/2022 Assessment & Plan (06/05/2025 2:24 PM CDT): Avoid ear cleaning techniques Continue hearing aids Follow up in one year for ear check Assessment & Plan (06/08/2024 12:50 PM CDT): Avoid ear cleaning techniques Follow up in one year for ear check Assessment & Plan (12/22/2022 12:05 PM CDT): Avoid ear cleaning techniques Follow up in one year for ear check, earlier if needed Amputation of digit of right hand 10/14/2022 Assessment & Plan (10/14/2022 4:35 PM LABORER CHEESEMAKING): Hx of partial amputation Peripheral artery disease 10/14/2022 Assessment & Plan (10/20/2023 7:05 AM LABORER CHEESEMAKING): asymptomatic She has developed bruising from the plavix Continue off plavix because of increase of bleeding Assessment & Plan (12/14/2022 1:58 PM CDT): She has developed bruising from the plavix Will stop plavix because of increase of bleeding Assessment & Plan (10/14/2022 5:44 PM LABORER CHEESEMAKING): Jeannine was 0.18 done on a screening at home Will start plavix 75mg She knows not to take nsaids with this because of increase risk of gi bleeding Monitor for symptoms and consider revascularization should she develop any Current moderate episode of major depressive disorder without prior episode 10/14/2022 Assessment & Plan (05/09/2025 1:44 PM CDT): Chronic Not at goal continue sertraline 50mg daily Denies SI/HI Knows to report to the ER should this occur Assessment & Plan (10/25/2024 1:05 PM LABORER CHEESEMAKING): Chronic Not at goal continue sertraline 50mg daily Denies SI/HI Knows to report to the ER should this occur Hand out with lists of counselors given Referral to therapy given F/u in 6 months, decines a sooner appt Assessment & Plan (10/21/2023 1:37 PM LABORER CHEESEMAKING): continue sertraline 25mg daily Denies SI/HI Knows to report to the ER should this occur Referral to therapy given F/u in 6 months Assessment & Plan (12/14/2022 1:59 PM CDT): continue sertraline 25mg daily Denies SI/HI Knows to report to the ER should this occur Referral to therapy given F/u in 1 month Assessment & Plan (11/11/2022 1:47 PM CDT): continue sertraline 25mg daily Denies SI/HI Knows to report to the ER should this occur F/u in 1 month Assessment & Plan (10/14/2022 5:41 PM LABORER CHEESEMAKING): New, worsening given situation Start sertraline 25mg daily Denies SI/HI Knows to report to the ER should this occur F/u in 1 month Encounter for wellness examination 10/13/2022 Assessment & Plan (05/09/2025 1:44 PM CDT): Orders: CBC with auto differential; Future Comprehensive metabolic panel; Future Hemoglobin A1c; Future Lipid panel; Future Thyroid Function Beulah; Future Assessment & Plan (10/24/2024 12:42 PM LABORER CHEESEMAKING): Labs reviewed and discussed Mammo up to date F/u in 1 year for annual Assessment & Plan (10/21/2023 1:38 PM LABORER CHEESEMAKING): Labs reviewed and discussed Mammo up to date F/u in 1 year for annual Assessment & Plan (10/13/2022 12:38 PM LABORER CHEESEMAKING): Labs reviewed and discussed Flu Mammo Zoster vaccine-encourage patient to go to local [facility] F/u in 1 year for annual Insomnia 05/03/2022 Assessment & Plan (10/24/2024 12:41 PM LABORER CHEESEMAKING): Stable Continue trazodone 50 mg daily Assessment & Plan (10/20/2023 7:07 AM LABORER CHEESEMAKING): Stable Continue trazodone 50 mg daily Assessment & Plan (10/13/2022 12:37 PM LABORER CHEESEMAKING): Stable Continue trazodone 50 mg daily Assessment & Plan (05/03/2022 2:43 PM CDT): Was asking for xanax Will give trazodone a try F/u in 1 month. If no improvement will consider xanax Dermatitis 04/12/2022 Assessment & Plan (10/13/2022 12:37 PM LABORER CHEESEMAKING): Continue following with Dermatology Assessment & Plan (06/03/2022 2:36 PM CDT): Worsening Referral to derm given Assessment & Plan (05/03/2022 2:43 PM CDT): Continue with topical cream prn rx refilled F/u prn. Can see derm if worsening Assessment & Plan (04/21/2022 4:26 PM CDT): Refilled zyrtec Recommend aveeno products Selsun blue for dandruff F/u 05/03 Rash of the groin about the same. If no improvement by next office visit will consider sending to dermatology Assessment & Plan (04/12/2022 10:50 AM CDT): Dermatitis w/ possible superimposed obed No improvement with lotrisone Will switch to nystatin and triamcinolone bid daily and then as needed F/u in 3 weeks Shingles 01/25/2022 Assessment & Plan (01/25/2022 9:43 AM CDT): Start valacyclovir 1,000mg tid for 7 day Can apply calamine lotion and otc symptomatic relief F/u in 1 week At risk for acute ischemic cardiac event 021 Pulmonary nodule 09/21/2019 Assessment & Plan (10/24/2024 12:41 PM LABORER CHEESEMAKING): Stable nodule is no longer requiring follow-up Assessment & Plan (10/20/2023 7:06 AM LABORER CHEESEMAKING): Stable nodule is no longer requiring follow-up Assessment & Plan (10/13/2022 12:37 PM LABORER CHEESEMAKING): Stable nodule is no longer requiring follow-up Other idiopathic scoliosis, thoracic region 11/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 05/02/2018 Age-related osteoporosis wit hout current pathological fracture 08/03/2017 Assessment & Plan (10/24/2024 12:40 PM LABORER CHEESEMAKING): Stable Continue with vitamin-D and routine DEXA scans Assessment & Plan (10/20/2023 7:05 AM LABORER CHEESEMAKING): Stable Continue with vitamin-D and DEXA scans Assessment & Plan (10/13/2022 12:35 PM LABORER CHEESEMAKING): Stable Continue with vitamin-D and DEXA scans Chronic GERD 08/03/2017 Assessment & Plan (10/24/2024 12:40 PM LABORER CHEESEMAKING): She uses gas x and monitor what she eats Assessment & Plan (10/20/2023 7:05 AM LABORER CHEESEMAKING): She uses gas x and monitor what she eats Assessment & Plan (10/14/2022 4:38 PM LABORER CHEESEMAKING): She uses gas x and monitor what she eats Mixed hyperlipidemia 03/28/2017 Assessment & Plan (05/09/2025 1:44 PM CDT): Orders: Lipid panel; Future Assessment & Plan (10/24/2024 12:39 PM LABORER CHEESEMAKING): Stable Continue atorvastatin 20 mg daily Assessment & Plan (10/20/2023 7:05 AM LABORER CHEESEMAKING): Stable Continue atorvastatin 20 mg daily Assessment & Plan (10/13/2022 12:34 PM LABORER CHEESEMAKING): Stable Continue atorvastatin 20 mg daily Assessment & Plan (04/12/2022 10:32 AM CDT): Bp in the office today BP Readings from Last 1 Encounters: 04/12/22 158/84 Continue current regimen Recommend DASH diet, heart-healthy lifestyle, exercise. Discussed the risks of hypertension. F/u in 3 months Essential hypertension 03/28/2017 Assessment & Plan (05/09/2025 1:44 PM CDT): Bp in the office today BP Readings from Last 3 Encounters: 05/09/25 128/86 02/08/25 121/63 02/08/25 118/60 Continue current regimen of lisinopril Recommend DASH diet, heart-healthy lifestyle, exercise. Discussed the risks of hypertension. Assessment & Plan (12/31/2024 9:54 AM CDT): Assessment & Plan (10/24/2024 12:39 PM LABORER CHEESEMAKING): Bp in the office today BP Readings from Last 1 Encounters: 08/31/24 132/88 continue lisinopril 10mg daily Recommend DASH diet, heart-healthy lifestyle, exercise. Discussed the risks of hypertension. F/u in 6 months Assessment & Plan (03/12/2024 1:36 PM CDT): Continue lisinopril. Assessment & Plan (10/21/2023 1:37 PM LABORER CHEESEMAKING): Bp in the office today BP Readings from Last 1 Encounters: 10/21/23 124/84 continue lisinopril 10mg daily Recommend DASH diet, heart-healthy lifestyle, exercise. Discussed the risks of hypertension. F/u in 6 months Assessment & Plan (06/28/2023 1:38 PM LABORER CHEESEMAKING): Bp in the office today BP Readings from Last 1 Encounters: 06/28/23 108/68 continue lisinopril 10mg daily Recommend DASH diet, heart-healthy lifestyle, exercise. Discussed the risks of hypertension. F/u in 6 months Assessment & Plan (04/21/2023 12:03 PM CDT): Bp in the office today BP Readings from Last 1 Encounters: 04/21/23 122/72 continue lisinopril 10mg daily Recommend DASH diet, heart-healthy lifestyle, exercise. Discussed the risks of hypertension. F/u in 6 months Assessment & Plan (01/19/2023 2:09 PM CDT): Bp in the office today BP Readings from Last 1 Encounters: 01/19/23 122/80 continue lisinopril 10mg daily Recommend DASH diet, heart-healthy lifestyle, exercise. Discussed the risks of hypertension. F/u in 3 months Assessment & Plan (01/03/2023 10:38 AM CDT): Bp in the office today BP Readings from Last 1 Encounters: 01/03/23 146/80 continue lisinopril 10mg daily Recommend DASH diet, heart-healthy lifestyle, exercise. Discussed the risks of hypertension. F/u at next visit Assessment & Plan (12/14/2022 1:57 PM CDT): Bp in the office today BP Readings from Last 1 Encounters: 12/14/22 148/100 increase lisinopril to 10mg daily Recommend DASH diet, heart-healthy lifestyle, exercise. Discussed the risks of hypertension. F/u in 1 month Assessment & Plan (11/11/2022 1:47 PM CDT): Bp in the office today BP Readings from Last 1 Encounters: 11/11/22 158/90 Start lisinopril 5mg daily Recommend DASH diet, heart-healthy lifestyle, exercise. Discussed the risks of hypertension. F/u in 1 month Assessment & Plan (10/14/2022 5:42 PM LABORER CHEESEMAKING): Bp in the office today BP Readings from Last 1 Encounters: 10/14/22 160/90 Likely from being under stress She will call with blood pressure readings in 2 weeks Recommend DASH diet, heart-healthy lifestyle, exercise. Discussed the risks of hypertension. F/u 1 month, if no improvement will start medication Assessment & Plan (06/03/2022 2:35 PM CDT): Bp in the office today BP Readings from Last 1 Encounters: 06/03/22 140/78 Continue current regimen Recommend DASH diet, heart-healthy lifestyle, exercise. Discussed the risks of hypertension. F/u at annual Assessment & Plan (04/11/2022 9:08 PM CDT): Bp in the office today BP Readings from Last 1 Encounters: 02/12/22 132/68 Continue current regimen Recommend DASH diet, heart-healthy lifestyle, exercise. Discussed the risks of hypertension. Presence of pessary 03/28/2017 Diaphragmatic hernia 07/01/2014 Assessment & Plan (10/12/2018 3:28 PM LABORER CHEESEMAKING): Asymptomatic at this time. Resolved Problems Problem Noted Date Diagnosed Date Resolved Date Encounter for staple removal 01/30/2025 05/08/2025 Assessment & Plan (01/31/2025 3:12 PM CDT): Visit for suture removal 01/30/2025 Assessment & Plan (01/31/2025 3:12 PM CDT): Encounter for completion of form with patient 10/26/19 25 05/08/2025 Assessment & Plan (10/25/2024 1:01 PM LABORER CHEESEMAKING): Form filled for [facility] stating patient is fit to live in their facility Encounter for completion of form with patient 10/21/19 24 10/24/2024 Assessment & Plan (10/21/2023 1:39 PM LABORER CHEESEMAKING): Son needs fmla forms to take her to office visits Preop examination 01/02/2023 10/24/2024 Assessment & Plan (01/03/2023 10:11 AM CDT): She understands that no procedure is risk-free but accepts those as discussed during OV and wishes to proceed. She was instructed to contact us if any new symptoms or problems arise between now and surgery date. According to the RCRI, the patient's number of risk factors stratifies patient to class I, which carries a 3.9% risk of major cardiovascular complications She is medically optimized for her tooth extraction Acute cystitis without hematuria 01/12/2022 2024 Assessment & Plan (01/12/2022 9:42 AM CDT): Recommend fluids, rest, humidification if needed. She was instructed to call back if symptoms do not improved in a week, or if worsening ones arise. Education provided. Start macrobid 100mg bid for 5 days poct UA unremarkable F/u prn Calculus of bile duct with a cute cholangitis with obstruction 10/13/2018 09/21/2019 Overview (10/13/2018): Added automatically from request for surgery [id number] Acute cholangitis due to omari culus of bile duct with obstruction 09/28/2018 09/21/2019 Assessment & Plan (10/12/2018 3:29 PM LABORER CHEESEMAKING): Patient is asymptomatic now. Will schedule ERCP to remove the stent and try to remove the stone in the bile duct in end of October./ the plan is to leave the stent 5-6 weeks to hopefully shrink down the size of the encountered stones. Medicare annual wellness visit, subsequent 03/28/2017 10/24/2017 Abdominal pain 05/04/2016 03/28/2017 Overview (11/26/2016): Abdominal pain Urinary tract infection 12/03/201402/2017 Overview (11/26/2016): Urinary tract infection Benign hypertension 01/05/2014 03/28/20 17 Overview (11/25/2016): BENIGN HYPERTENSION Disorder of gallbladder 11/10/201202/2017 Overview (11/27/2016): Gallbladder disease Shortness of breath 02/24/2012 05/02/20 18 Hypokalemia 01/17/2019 Encounters Date Type Department Care Team Description 06/05/2025 2:00 PM CDT Office Visit [facility] [address] [place] [phone] Cally Aguilar, DO Bilateral impacted cerumen (Primary Dx) 05/23/2025 Results Follow-Up [facility] [place] [address] [place] [phone] Maisha Rios MD XR Knee Right 1 Or 2 Vw 05/22/2025 9:01 AM CDT - 05/22/2025 11:59 PM CDT Hospital Encounter [facility] [address] [place] [address] Mass of right knee Discharge Disposition: Discharge to home or self care 05/09/2025 12:45 PM CDT Office Visit [facility] at [address] [place] [phone] Maisha Rios MD Essential hypertension (Primary Dx); Anxiety; Current moderate episode of major depressive disorder without prior episode (HCC); Need for hepatitis B screening test; Encounter for wellness examination; Mixed hyperlipidemia; BMI 22.0-22.9, adult; Mass of right knee 05/09/2025 Telephone [facility] at [address] [phone] Maisha Rios MD 03/29/2025 Telephone [facility] at [address] [phone] Maisha Rios MD from Last 3 Months Immunizations Immunization Administration Dates Next Due Influenza, Quadrivalent, Hig h Dose, Preservative Free, Intrr 05/05/2023,04/22/2022,05/21/2021,04/30 Influenza, Quadrivalent, Spl it, Preservative Free, Intramuscular 06/23/2013 Influenza, Split 06/14/2012, 1,06/15/2010,06/23 Influenza, Trivalent, High D ose, Split, Preservative Free, Intramuscular 04/26/2024,05/21/2019,05/01/2018,04/05,05/25/2016,05/07/2015 Influenza, Trivalent, IM (MDV) 4,05/24/2014,05/22/2013,07/11 Influenza, Unspecified 04/23/2022,2021(Deferred: Patient Refused),04/09/2021(Deferred: Patient Refused) Pfizer SARS-CoV-2 Monovalent Vaccination (12+ Yrs) PURPLE 10/25/2020 Pneumococcal Conjugate PCV 13 02/27/2015 Pneumococcal Polysaccharide PPV23 04/09/2021, Td, adsorbed 09/01/2009 ZOSTER LIVE 02/27/2015 ZOSTER Recombinant 11/28/2019,09/28/2019 Surgical History Surgery Date Site/Laterality Comments OTHER SURGICAL HISTORY 08/22/2006 - 08/21/2007 Rt Shoulder Replacement APPENDECTOMY Appendectomy OTHER SURGICAL HISTORY BUION SURG. ELADIO OTHER SURGICAL HISTORY 08/22/2011 - 08/21/2012 hiatial hernia repair: Hernia repair OTHER SURGICAL HISTORY 08/22/1975 - 08/21/1976 vaginal Hysterectomy LAPAROSCOPIC CHOLECYSTECTOMY 08/22/2015 - 08/21/2016 Cholecystectomy, laparoscopic OTHER SURGICAL HISTORY ERCP with stents HYSTERECTOMY ERCP with stent placement AMPUTATION FINGER / THUMB partial Medical History Medical History Date Comments Peptic ulcer Peptic ulcer dis ease Gastroesophageal reflux disease GERD Hypertension Hypertension Hx Other Medical hiatial hernia repair Hx Other Medical hemorrhoidectom y; Comments: December 2015 Hypothyroidism Family History Medical History Relation Name Comments Other Father WW[place] in [place]; Cause of : WWII in [place] Depression Mother Depression; Diabetes Other Family history of Diabetes mellitus; Cancer Neg Hx Cancer -; Relation Name Status Comments Father (Age 27) Mother Other Social History Tobacco Use Types Packs/Day Years Used Date Smoking Tobacco: Never Passive Smoke Exposure: Never Smokeless Tobacco: Never Tobacco Cessation:Counseling Given: Not Answered Alcohol Use Standard Drinks/Week Comments No 0 (1 standard drink = 0.6 oz pur e alcohol) [facility] PersistIQities Answer Date Recorded In the past 12 months has [employer] electric, gas, oil, or water [employer] threatened to shut off services in your home? No 12/10/2024 Social Connection and Isolation Panel Answer Date Recorded In a typical week, how many times do you talk on the phone with family, friends, or neighbors? Three times a week 12/10/2024 How often do you get togethe r with friends or relatives? Twice a week 12/10/2024 How often do you attend [facility] or christian services? More than 4 times per year 12/10/2024 Do you belong to any clubs o r organizations such as sikhism groups, unions, fraternal or athletic groups, or school groups? No 12/10/2024 How often do you attend meet ings of the clubs or organizations you belong to? Never 12/10/2024 Are you , , di vorced, , never , or living with a partner? 12/10/2024 AUDIT-C Answer Date Recorded Q1: How often do you have a drink containing alcohol? Never 12/09/2024 Q2: How many drinks containi ng alcohol do you have on a typical day when you are drinking? Patient does not drink Q3: How often do you have si x or more drinks on one occasion? Never 12/09/2024 Overall Financial Resource Strain (CARDIA) Answe r Date Recorded How hard is it for you to pa y for the very basics like food, housing, medical care, and heating? Not hard at all 12/10/2024 PHQ-2 Answer Date Recorded PHQ-2 Total Score (If total score is 3 or more points, staff should administer the PHQ-9) 0 05/09/2025 Hunger Vital Sign Answer Date Recorded Within the past 12 months, y ou worried that your food would run out before you got the money to buy more. Never true 12/11/19 25 Within the past 12 months, t he food you bought just didn't last and you didn't have money to get more. Never true 12/10/2024 PRAPARE - Transportation Answer Date Re corded In the past 12 months, has l ack of transportation kept you from medical appointments or from getting medications? No 11/21 In the past 12 months, has l ack of transportation kept you from meetings, work, or from getting things needed for daily living? No 12/10/2024 Housing Stability Vital Sign Answer Chucky e Recorded In the last 12 months, was t here a time when you were not able to pay the mortgage or rent on time? No 12/10/2024 In the past 12 months, how m any times have you moved where you were living? 0 12/10/2024 At any time in the past 12 m [facility], were you homeless or living in a mcc (including now)? No 12/10/2024 Personal Safety Answer Date Recorded Have you ever been in or are you currently in a harmful physical or emotional relationship or is someone making you feel afraid or unsafe? Denies 02/08/2025 Comments No Sex and Gender Information Value Date Recorded Sex Assigned at Not on file Legal Sex Female 11:51 PM [employer] Gender Identity Not on file Sexual Orientation Not on file Obstetrics History Para Term AB IAB SAB Ectopic Multiple Livin g Live Births 4 4 4 Date Outcome GA Total Labor Labor/2nd/3rd Weight Sex Type Anes PTL Pavithra A1 A5 Name Clin Term Term Term Term Last Filed Vital Signs Vital Sign Reading Time Taken Comments Blood Pressure 128/86 05/09/2025 12:37 PM CDT Pulse 67 05/09/2025 12:37 PM CDT Temperature 36.9 C (98.4 F) 05/09/2025 12:37 PM CDT Respiratory Rate 18 05/09/2025 12:3 7 PM CDT Oxygen Saturation 96% 05/09/2025 12: 37 PM CDT Inhaled Oxygen Concentration - - Weight 52.5 kg (115 lb 11.2 oz) 025 12:37 PM CDT Height 152.4 cm (5') 05/09/2025 12:37 PM CDT Body Mass Index 22.6 05/09/2025 12:37 PM CDT Plan of Treatment Health Maintenance Due Date Last Done Comments Osteoporosis Screening-Bone Density Scan 06/07/2019 06/07/2017, 05/12/2015 Colon Cancer Screening-Colonoscopy 07/19/2022 07/19/2017, 06/11/2014, 06/11/2014, Additional history exists Breast Cancer Screening-Mammogram 06/07/2025 06/07/2024, 04/05/2023, 03/17/2022, Additional history exists DTaP/Tdap/Td Vaccine (1 - Tdap) 10/25/2025 09/01/2009 Postponed from 09/02/2009 (Insurance / Financial) Well Visit 65+ 10/25/2025 10/25/2024, 03/0 08/2023, 10/14/2022, Additional history exists Influenza Vaccine (#1) 2026 , 04/26/2024, 05/05/2023, Additional history exists Postponed from 04/22/2025 (Patient declined, but will receive in the future) Covid-19 Vaccine ( season) 2026 05/11/2022, 06/04/2021, 11/22/2020, Additional history exists Postponed from 04/22/2025 (Patient declined, but will receive in the future) Depression Screening 05/09/2026 05/09/2025, 01/31/2025, 12/31/2024, Additional history exists Fall Risk Assessment 05/09/2026 05/09/2025, 01/31/2025, 12/31/2024, Additional history exists Colon Cancer Screening-CT Colonography Discontinued 07/19/2017, 06/11/2014, 06/11/2014, Additional history exists Colon Cancer Screening-DNA Stool Discontinued 07/19/2017, 06/11/2014, 06/11/2014, Additional history exists Colon Cancer Screening-FIT Discontinued 07/19, 06/11/2014, 06/11/2014, Additional history exists Colon Cancer Screening-Sigmoidoscopy Discontinued 07/19/2017, 06/11/2014, 06/11/2014, Additional history exists Zoster Vaccine Completed 11/28/2019, 02/2020, 02/27/2015 Pneumococcal vaccine 65+ Completed 021, 02/27/2015, 01/09/2007 Hepatitis B Screening Completed 10/15/2024 Procedures Procedure Name Priority Date/Time Associated Diagnosis Comments DC REMOVAL IMPACTED CERUMEN INSTRUMENTATION UNILAT Routine 06/05/2025 2:00 PM CDT Bilateral impacted cerumen XR KNEE RIGHT 1 OR 2 VIEWS Schedule Routine, Read Routine (OP Routine) 05/22/2025 9:10 AM CDT Mass of right knee SCREENING MAMMOGRAM BILATERAL W ROBBIE Schedule Routine, Read Routine (OP Routine) 06/07/2024 8:39 AM CDT Screening mammogram, encounter for COLONOSCOPY REPORT 07/19/2017 2: 59 PM [employer] DEXA AXIAL SKELETON BONE DENSITY 1 OR MORE SITES Schedule Routine, Read Routine (OP Routine) 06/07/2017 2:25 PM CDT Medicare annual wellness visit, subsequent from Last 3 Months or Most Recently Relevant to Health Maintenance Results * DC REMOVAL IMPACTED CERUMEN INSTRUMENTATION UNILAT (06/05/2025 2:00 PM CDT) Narrative Cally Aguilar DO - 06/05/2025 2:00 PM CDT Cally Aguilar DO 06/06/2025 9:22 AM Ear Cerumen Removal Performed by: Cally Aguilar DO Authorized by: Cally Aguilar DO Consent Given by: Patient Timeout: prior to procedure the correct patient, procedure, and site was verified Verbal consent obtained: Yes Written consent obtained: No Risks, alternatives, and patient questions discussed: Yes Preparation: Patient was prepped using a clean technique Location: Bilateral L ear cerumen impacted?: Yes L ear method of removal: Instrumentation and magnification L ear instrumentation: Curette L ear magnification: Operating microscope R ear cerumen impacted?: Yes R ear method of removal: Instrumentation and magnification R ear instrumentation: Curette R ear magnification: Operating microscope Inspection: TM intact Hearing quality: Improved Patient tolerance: Patient tolerated the procedure well with no immediate complications Cally Aguilar DO IN CLINIC/BEDSIDE ORDERABLES Final Result * XR Knee Right 1 Or 2 Vw (05/22/2025 9:10 AM CDT) Anatomical Region Laterality Modality Lower Extremities, Knee Right Computed Radiography 05/22/2025 9:45 PM CDT Narrative 05/22/2025 9:46 PM CDT EXAM DESCRIPTION: 1. XR KNEE RIGHT 1 OR 2 VIEWS REASON FOR STUDY: mass of right knee Complaints of mass on R knee, anterior aspect x 1 month. NKI. No prior injuries/surgery to R knee. FINDINGS: Two views submitted without comparison. No acute fracture. Alignment is normal. Mild tricompartmental right knee osteoarthritis. No effusion. Prepatellar soft tissue swelling. IMPRESSION: 1. Mild tricompartmental right knee osteoarthritis. 2. Prepatellar soft tissue swelling. This is nonspecific, but may represent prepatellar bursitis. Can be further evaluated with MRI if clinically indicated. THIS IS AN ELECTRONICALLY VERIFIED FINAL REPORT 05/22/2025 9:46 PM - Electronically signed by Ken Rey M.D. MF: [email or web address] Report ID: [id number] Reading Location: [id number] Procedure Note Ken Rey MD - 05/22/2025 EXAM DESCRIPTION: 1. XR KNEE RIGHT 1 OR 2 VIEWS REASON FOR STUDY: mass of right knee Complaints of mass on R knee, anterior aspect x 1 month. NKI. No prior injuries/surgery to R knee. FINDINGS: Two views submitted without comparison. No acute fracture. Alignment is normal. Mild tricompartmental right knee osteoarthritis. No effusion. Prepatellar soft tissue swelling. IMPRESSION: 1. Mild tricompartmental right knee osteoarthritis. 2. Prepatellar soft tissue swelling. This is nonspecific, but mayrepresent prepatellar bursitis. Can be further evaluated with MRI if clinically indicated. THIS IS AN ELECTRONICALLY VERIFIED FINAL REPORT 05/22/2025 9:46 PM - Electronically signed by Ken Rey M.D. MF: [email or web address] Report ID: [id number] Reading Location: [place] [address] Maisha Hilton MD IMG XR PROCEDURES Fin al Result * Screening Mammogram Bilateral W Robbie (06/07/2024 8:39 AM CDT) Anatomical Region Laterality Modality Breast Bilateral Mammography 06/07/2024 5:32 PM CDT Impressions 06/07/2024 5:32 PM CDT No evidence of malignancy in either breast. FINAL ASSESSMENT: BI-RADS Category 1: Negative. RECOMMENDATION: Recommend return for annual screening mammogram in 12 months. Electronically signed by: Nataly Thomas M.D. Narrative 06/07/2024 5:32 PM CDT EXAMINATION: BILATERAL SCREENING MAMMOGRAM COMPARISON: 04/05/2023 TECHNIQUE: Full-field 2D and digital breast tomosynthesis (DBT) images were obtained. CAD was utilized. BREAST PARENCHYMAL COMPOSITION: There are scattered areas of fibroglandular density. FINDINGS: There is no suspicious mass, calcification, or distortion in either breast. Self Screening Mammogram IMG MAMMO PROCEDURES Fi nal Result * COLONOSCOPY REPORT (07/19/2017 2:59 PM [employer]) Anatomical Region Laterality Modality Other Provider Scanning GI PROCEDURE ORDERABLES Edited Result - Final * Dexa Axial Skeleton Bone Density 1 or 2 Site (06/07/2017 2:25 PM CDT) SCRIBED DXA T-SCORE -2.5 SCRIBED DXA Z-SCORE -0.7 SCRIBED DXA BMD 0.693 Anatomical Region Laterality Modality Body N/A Digital Radiogra phy Lito Kwan MD IMG DXA PROCEDURES Final Resul t from Last 3 Months or Most Recently Relevant to Health Maintenance Insurance [facility] Address: [facility] [id number] [place] [address] UHC MEDICARE ADVANTAGE [facility] MED[facility] Address: [address] [address] [place] [address] [facility] MEDICARE ADVANTAGE [facility] Address: [address] [address] [place] [address] Advance Directives For more information, please contact: [phone] Documents on File Type Date Recorded 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 12/06/2024 11:09 AM Smita r of Outside Delive[employer] * Full Code (Latest Code Status on File) Date Activated Date Inactivated Comments 12/09/2024 8:27 PM 12/11/2024 7:32 PM * Full Code Date Activated Date Inactivated Comments 11/29/2024 1:09 PM 12/05/2024 7:04 PM * Full Code Date Activated Date Inactivated Comments 11/29/2024 1:03 PM 11/29/2024 1:09 PM * Full Code Date Activated Date Inactivated Comments 11/26/2024 1:49 PM 11/29/2024 1:03 PM * Full Code Date Activated Date Inactivated Comments 11/14/2018 4:47 PM 11/15/2018 4:54 PM 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
== END 2025-06-08 11:03 | disposition home or self-care (01) ==
PROVIDERS: Emergency Provider Nurse Practitioner; PCP Family Medicine
DX: S80.12XA Contusion of left lower leg, initial encounter (principal); W18.09XA Striking against other object with subsequent fall, initial encounter; I10 Essential (primary) hypertension; E78.00 Pure hypercholesterolemia, unspecified; F32.A Depression, unspecified; Z86.73 Personal history of transient ischemic attack (TIA), and cerebral infarction without residual deficits
CPT/HCPCS: 99212; G0463